=== PATIENT | female | born 1995 | race Caucasian/White ===

== ENCOUNTER → 2018-10-02 | Outpatient (CLI) | payer OTHER | LOC: GMAM 14:25 | PROVIDERS: ATTEND Family Medicine | DX: E10.9 Type 1 diabetes mellitus without complications (principal); R50.9 Fever, unspecified ==

== ENCOUNTER → 2018-10-02 | Outpatient (CLI) | payer OTHER ==
--- NOTE | 2018-10-02 13:08 | CT ---
EXAM DESCRIPTION: Abdomen/Pelvis w/wo Contrast: Computed Tomography. CLINICAL HISTORY: HEMATURIA COMPARISON: None. TECHNIQUE: Spiral-axial scans at 5 x 5 mm intervals through the abdomen and pelvis before and after 100 mL nonionic IV contrast. No oral contrast. Coronal and sagittal 2.0 mm reconstructions. 5 minute 5 mm Delayed helical-axial scans, liver through the pubic symphysis. No adverse reactions. Total Exam DLP 2624.02 mGy - cm. This exam was performed according to our departmental CT dose-optimization program which includes automated exposure control, adjustment of the mA and/or kV according to patient size and/or use of iterative reconstruction technique; to reduce radiation dose to as low as reasonably achievable (ALARA). FINDINGS: Lung bases and pleura: 3 x 3 mm nodule abutting the pleura in the left upper lobe which is calcified with density +282. No further imaging recommended. Otherwise unremarkable. Liver, Stomach, Spleen, Adrenal Glands: 16.7 cm long axis of the right lobe liver and 12.2 cm long axis of the spleen. No focal lesions. Stomach and adrenal glands are unremarkable. Pancreas, Gallbladder, Ducts: Gallbladder visualized. Common bile duct unremarkable. Pancreas is negative. Kidneys and Ureters: Normal size density and enhancement bilaterally. No radiodense stones, hydronephrosis, focal lesions, or perinephric fluid. Normal appearance of the ureters bilaterally although the distal right ureter not well seen on the delayed image. Mesentery: Unremarkable. Aorta: Negative. Small Bowel: Unremarkable. Terminal Ileum/Cecum: Normal caliber. Appendix 5.5 mm wide with no fatty stranding or fascial thickening. Colon: Scattered fecal material with no distention. Mild redundancy of the sigmoid colon and the ascending colon. Pelvic Organs: Uterus appears to be slightly referable flexed fundus deviating to the right. No free fluid. Bilateral ovaries contain follicles. Spine and Bony Pelvis: Minimal subchondral sclerosis bilateral acetabula with normal hip joint spaces. Small bone island posterior medial right iliac bone abutting the inferior SI joint. Abdominal Wall/Back Soft Tissues: 2.0 x 1.4 centimeter reactive lymph node in the left groin region with normal appearance of the surrounding fat and other lymph nodes. Axial series 4, image 91. Diastases at the umbilicus but not containing bowel. IMPRESSION: 1. No abnormalities seen in the bilateral kidneys and ureters without and with IV contrast. Minimal distention of the urinary bladder but not well filled with IV contrast, so mucosa and wall of the urinary bladder not well seen. 2. 2 cm reactive lymph node left groin. No other abnormal appearing lymph nodes with normal density of the surrounding fat. Electronically signed by: Khai Kohli MD 10/02/2018 1:05 PM CDT
== END ==
LOC: CT 12:19
PROVIDERS: ATTEND Family Medicine
DX: R10.31 Right lower quadrant pain (principal)

== ENCOUNTER → 2018-11-12 | Outpatient (CLI) | payer OTHER ==
--- NOTE | 2018-11-13 19:05 | US ---
EXAM DESCRIPTION: Soft Tissue,Extremity: ULTRASOUND. CLINICAL HISTORY: 23 years Female ENLARGED LYMPH NODE LEFT GROIN COMPARISON: CT scan abdomen and pelvis 10/02/2018. TECHNIQUE: Transcutaneous scanning: Mendez-scale and Doppler modes. FINDINGS: Circumscribed hypoechoic mass with an echogenic hilum which is vascular in the left groin measuring 1.3 x 2.1 x 0.8 cm, consistent with a lymph node. In the right groin similar-appearing hypoechoic mass with echogenic center measures 1.6 x 0.5 x 0.5 cm. The echogenic center and hilum is also vascular. No distinct cyst or dominant solid mass. No parenchymal edema or large calcifications. No overlying skin changes. Normal vascularity. IMPRESSION: Bilateral groin lymph nodes which are enlarged but not showing significant reactive changes. Electronically signed by: Khai Kohli MD 11/13/2018 7:03 PM CDT
== END ==
LOC: US 13:00
PROVIDERS: ATTEND Family Medicine
DX: R59.0 Localized enlarged lymph nodes (principal)

== ENCOUNTER 2019-01-20 13:01 | Emergency (ER) | payer OTHER ==
--- NOTE | 2019-01-20 13:20 | ED.PDOC ---
History of Present Illness - General Chief Complaint: Diabetic Complaint Stated Complaint: HIGH BLOOD SUGAR Time Seen by Provider: 01/20/19 13:16 Exam Limitations: no limitations - History of Present Illness Initial Comments: Cori Camargo 23 y/o female stated that her blood sugar been high for the last 3 days and today was about 500 gm /dl as showing on her insulin pump.No nausea /vomiting no polyuria,polydipsia.No fever but stated had been under lots of stress after her daughter was placed under CPS custody. Timing/Duration: other - 3 days Severity: moderate Improving Factors: nothing Worsening Factors: nothing Associated Symptoms: denies symptoms Allergies/Adverse Reactions: Allergies NO KNOWN ALLERGY Allergy (Verified 01/20/19 13:15) Home Medications: Ambulatory Orders Human Insulin Aspart [Novolog] 1 units SUBCU DAILY 01/20/19 Insulin Detemir [Levemir] 30 unit SUBCU BIDAC #1 pen 01/20/19 Sertraline HCl 1 each PO DAILY 01/20/19 Review of Systems - Review of Systems Endocrine: States: other - hyperglycemia All other Systems: Reviewed and Negative, No Change from Baseline Past Medical History (General) - Patient Medical History Hx Diabetes: Yes Surgical History: no surgical history - Vaccination History Hx Influenza Vaccination: Yes - Social History Hx Tobacco Use: No Hx Alcohol Use: No Hx Substance Use: No Hx Substance Use Treatment: No Hx Depression: No - Female History Patient is a Female of Child Bearing Age (10 -59 yrs old): Yes Hx Last Menstrual Period: 01/07/19 Patient : No - Triage Comment ED Triage Comment: DEPO PROVERA CONTROL Family Medical History - Family History Mother Family History: Unknown Physical Exam - Physical Exam General Appearance: Alert, Comfortable, No apparent distress Eye Exam: bilateral normal Ears, Nose, Throat: hearing grossly normal, normal ENT inspection, normal pharynx Neck: non-tender, full range of motion, supple, normal inspection Respiratory: chest non-tender, lungs clear, normal breath sounds, no respiratory distress Cardiovascular/Chest: normal peripheral pulses, regular rate, rhythm, no murmur Peripheral Pulses: radial,right: 2+, radial,left: 2+ Gastrointestinal/Abdominal: non tender, soft Back Exam: no CVA tenderness, no vertebral tenderness Extremity: normal inspection, no pedal edema, no calf tenderness Neurologic: alert, oriented x 3 Skin Exam: normal color, warm/dry Progress - Progress Progress: 01/20/19 13:38 Laboratory Tests 01/20/19 01/20/19 13:20 13:32 POC Glucose > 400 H* Random Glucose Cancelled 01/20/19 13:38 Vital Signs 01/20/19 13:07 Temperature 99.4 F Pulse Rate [ 91 H PULSE OX] Respiratory 20 Rate Blood Pressure 143/85 [Left Arm] O2 Sat by Pulse 99 Oximetry - Results/Orders Results/Orders: Laboratory Tests 01/20/19 01/20/19 01/20/19 13:20 13:20 13:20 WBC 7.7 RBC 5.29 Hgb 12.8 Hct 39.2 MCV 74.1 L MCH 24.2 L MCHC 32.7 L RDW 15.9 H Plt Count 255 MPV 8.5 Absolute Neuts (auto) 4.90 Absolute Lymphs (auto) 2.40 Absolute Monos (auto) 0.30 Absolute Eos (auto) 0.00 Absolute Basos (auto) 0.10 Neutrophils % 63.4 Lymphocytes % 31.5 Monocytes % 3.7 Eosinophils % 0.5 L Basophils % 0.9 Normal RBC Morphology Stain quality accept Sodium 131 L Potassium 4.4 Chloride 97 L Carbon Dioxide 20 L Anion Gap 18.4 H BUN 16 Creatinine 0.96 BUN/Creatinine Ratio 16.7 POC Glucose > 400 H* Random Glucose 495 H* Serum Osmolality 285.8 Calcium 10.1 Total Bilirubin 1.1 H AST 18 ALT 13 Alkaline Phosphatase 80 Serum Total Protein 8.3 H Albumin 4.6 Globulin 3.7 H Albumin/Globulin Ratio 1.2 Serum HCG, Qual Urine Color Urine Appearance Urine pH Ur Specific [place] Urine Protein Urine Glucose (UA) Urine Ketones Urine Blood Urine Nitrite Urine Bilirubin Urine Urobilinogen Ur Leukocyte Esterase Urine RBC Urine WBC Ur Epithelial Cells Urine Bacteria 01/20/19 01/20/19 01/20/19 13:20 13:32 13:40 WBC RBC Hgb Hct MCV MCH MCHC RDW Plt Count MPV Absolute Neuts (auto) Absolute Lymphs (auto) Absolute Monos (auto) Absolute Eos (auto) Absolute Basos (auto) Neutrophils % Lymphocytes % Monocytes % Eosinophils % Basophils % Normal RBC Morphology Sodium Potassium Chloride Carbon Dioxide Anion Gap BUN Creatinine BUN/Creatinine Ratio POC Glucose Random Glucose Cancelled Serum Osmolality Calcium Total Bilirubin AST ALT Alkaline Phosphatase Serum Total Protein Albumin Globulin Albumin/Globulin Ratio Serum HCG, Qual Negative Urine Color Yellow Urine Appearance Clear Urine pH 6.0 Ur Specific [place] 1.015 Urine Protein Negative Urine Glucose (UA) 500 H Urine Ketones 40 H Urine Blood Moderate H Urine Nitrite Negative Urine Bilirubin Negative Urine Urobilinogen 0.2 Ur Leukocyte Esterase Negative Urine RBC 5-10 H Urine WBC 0-1 Ur Epithelial Cells 5-10 Urine Bacteria Rare 01/20/19 15:25 WBC RBC Hgb Hct MCV MCH MCHC RDW Plt Count MPV Absolute Neuts (auto) Absolute Lymphs (auto) Absolute Monos (auto) Absolute Eos (auto) Absolute Basos (auto) Neutrophils % Lymphocytes % Monocytes % Eosinophils % Basophils % Normal RBC Morphology Sodium 133 L Potassium 3.8 Chloride 103 Carbon Dioxide 21 Anion Gap 12.8 BUN 13 Creatinine 0.73 BUN/Creatinine Ratio 17.8 POC Glucose Random Glucose 295 H D Serum Osmolality 277.4 Calcium 9.1 Total Bilirubin AST ALT Alkaline Phosphatase Serum Total Protein Albumin Globulin Albumin/Globulin Ratio Serum HCG, Qual Urine Color Urine Appearance Urine pH Ur Specific [place] Urine Protein Urine Glucose (UA) Urine Ketones Urine Blood Urine Nitrite Urine Bilirubin Urine Urobilinogen Ur Leukocyte Esterase Urine RBC Urine WBC Ur Epithelial Cells Urine Bacteria Discuss test result with patient blood sugar trending down. Departure - Departure Clinical Impression: Hyperglycemia due to type 1 diabetes mellitus Time of Disposition: 16:20 Disposition: Discharge to Home or Self Care Condition: Fair Departure Forms: ED Discharge - Pt. Copy, Patient Portal Self Enrollment Instructions: DI for Diabetes Type 1 -- Adult Referrals: Rob Steven MD [Primary Care Provider] - 1-2 Weeks Prescriptions: Insulin Detemir [Levemir] 30 unit SUBCU BIDAC #1 pen Home Medications: Ambulatory Orders Human Insulin Aspart [Novolog] 1 units SUBCU DAILY 01/20/19 Insulin Detemir [Levemir] 30 unit SUBCU BIDAC #1 pen 01/20/19 Sertraline HCl 1 each PO DAILY 01/20/19 Additional Instructions: Keep appointment with [facility] as scheduled;Return to ER as needed Continue with all home medications
[2019-01-20] MEDS ORDERED: LACTATED RINGERS 1,000 ML IVS ONE (13:24)
[2019-01-20] MEDS ORDERED: INSULIN, REG.(HUMAN) 100 U/ML VIAL SUBCU ONE (13:33)
[2019-01-20] MEDS ORDERED: SODIUM CHLORIDE 0.9% 1000ML 1,000 ML IVS ONE (14:39)
[2019-01-20 15:17] VITALS: TEMP 99.1
[2019-01-20 16:40] VITALS: BP 102/58; O2SAT 97
== END 2019-01-20 16:39 | disposition home or self-care (01) ==
LOC: ER 13:01
DX: E10.65 Type 1 diabetes mellitus with hyperglycemia (principal); Z79.4 Long term (current) use of insulin; Z79.899 Other long term (current) drug therapy
CPT/HCPCS: 36415; 80048; 80053; 81001; 82948; 84703; 85025; J7030; J7120

== ENCOUNTER → 2019-02-26 | Outpatient (CLI) | payer OTHER ==
--- NOTE | 2019-02-26 18:28 | US ---
EXAM DESCRIPTION: Soft Tissue,Extremity: ULTRASOUND. CLINICAL HISTORY: 23 years Female ENLARGED LYMPH NODES, UNSPECIFIED COMPARISON: None Available. TECHNIQUE: Transcutaneous scanning: Mendez-scale and Doppler modes. FINDINGS: Bilateral hypoechoic masses with circumscribed margins and echogenic centers or loretta are seen consistent with lymph nodes. One node measures 1.4 x 0.9 x 0.5 cm in the right inguinal canal, with no color Doppler. Several lymph nodes in the left inguinal canal: 1.6 x 0.8 x 0.6 cm, 1.7 x 1.0 x 0.6 cm (minimal color Doppler) and 1.5 x 0.7 x 0.6. No dominant solid mass or distinct cyst. No large calcifications or parenchymal edema. IMPRESSION: Bilateral lymph nodes in the inguinal canals. The nodes do not appear reactive. Minimally vascular. No dominant solid masses or cysts or parenchymal edema. Electronically signed by: Khai Kohli MD 02/26/2019 6:26 PM CDT
== END ==
LOC: US 10:00
PROVIDERS: ATTEND Family Medicine
DX: R59.9 Enlarged lymph nodes, unspecified (principal)

== ENCOUNTER 2019-10-11 13:50 | Emergency (ER) | payer OTHER ==
[2019-10-11] MEDS ORDERED: SODIUM CHLORIDE 0.9% (FLUSH) 10 ML SYG IV PRN (14:20)
--- NOTE | 2019-10-11 16:02 | CT ---
EXAM DESCRIPTION: Abdomen/Pelvis w/Contrast CLINICAL HISTORY:24 years Female, abdominal pain Comparison: September 2018 TECHNIQUE: Contiguous axial CT images of the abdomen and pelvis were obtained. Sagittal and coronal reformats were reviewed. This exam was performed according to our departmental dose-optimization program, which includes automated exposure control, adjustment of the mA and/or kV according to patient size and/or use of iterative reconstruction technique. FINDINGS: Lung bases: Clear. Liver:Unremarkable. No focal liver lesion. Gallbladder:Unremarkable. No gallstones. No gallbladder wall thickening or pericholecystic fluid. Spleen:Unremarkable Pancreas: Pancreas is unremarkable. Adrenal glands:Within normal limits. Kidneys/ureters:Within normal limits Stomach/small bowel/colon: Stomach is unremarkable. Small bowel is unremarkable. Colon is unremarkable. Appendix: No evidence of appendicitis. Peritoneum: No free fluid. Vascular structures: within normal limits Lymph nodes: Numerous and mildly prominent mesenteric lymph nodes scattered throughout the abdomen are stable compared to the previous exam. Bladder:Unremarkable. Pelvic organs: No acute abnormality Bones: No acute osseous abnormality. Soft tissues: Unremarkable.. IMPRESSION: No acute intra-abdominal abnormality. Electronically signed by: Martín Colon DO 10/11/2019 4:00 PM CDT
[2019-10-11] MEDS ORDERED: DICYCLOMINE HCL INJ 20 MG/2 ML AMP IM ONE (16:37)
--- NOTE | 2019-10-11 16:52 | ED.PDOC ---
History of Present Illness - General Chief Complaint: GI Problem Stated Complaint: Abdominal pain, diarrhea, constipation Time Seen by Provider: 10/11/19 14:10 - History of Present Illness Initial Comments: c/o central abdominal pain since few days went to clinic was told that she has UTI and started on UTI meds , then again went to clinic as pt was getting worse , was told that she has constipation , her constipation has gone but still having the pain Review of Systems - Review of Systems Constitutional: States: no symptoms reported EENTM: States: no symptoms reported Respiratory: States: no symptoms reported Cardiology: States: no symptoms reported Gastrointestinal/Abdominal: States: see HPI Genitourinary: States: no symptoms reported Musculoskeletal: States: no symptoms reported Skin: States: no symptoms reported Neurological: States: no symptoms reported Endocrine: States: no symptoms reported Past Medical History (General) - Patient Medical History Hx Stroke: No Hx of COPD: No Hx Cardiac Disorders: No Hx Hypertension: No Hx Diabetes: Yes Hx Cancer: No Surgical History: no surgical history - Vaccination History Hx Influenza Vaccination: Yes - Social History Hx Tobacco Use: No Hx Alcohol Use: Yes Hx Substance Use: No Hx Substance Use Treatment: No Hx Depression: No - Female History Patient is a Female of Child Bearing Age (10 -59 yrs old): Yes Hx Last Menstrual Period: 01/07/19 Patient : No - Denies Family Medical History - Family History Maternal Grandparents Hx Family Diabetes: Yes Mother Family History: Unknown Living Status: Still Living Physical Exam - Physical Exam General Appearance: Alert, Comfortable Eyes, Ears, Nose, Throat Exam: PERRL/EOMI, normal ENT inspection Neck: non-tender, full range of motion, supple, normal inspection Respiratory: chest non-tender, lungs clear, normal breath sounds, no respiratory distress, no accessory muscle use Cardiovascular/Chest: regular rate, rhythm, no edema, no gallop, no JVD, no murm ur Gastrointestinal/Abdominal: soft, tenderness - central abdominal tenderness Progress - Results/Orders Results/Orders: Laboratory Results WBC 9.3 K/mm3 (4.8-10.8) 10/11/19 14:43 RBC 5.13 M/mm3 (4.20-5.40) 10/11/19 14:43 Hgb 13.3 gm/dL (12.0-16.0) 10/11/19 14:43 Hct 39.9 % (36.0-47.0) 10/11/19 14:43 MCV 77.8 fl (81.0-99.0) L 10/11/19 14:43 MCH 25.9 pg (27.0-31.0) L 10/11/19 14:43 MCHC 33.3 g/dL (33.0-37.0) 10/11/19 14:43 RDW 13.4 % (11.5-14.5) 10/11/19 14:43 Plt Count 303 K/mm3 (130-400) 10/11/19 14:43 MPV 7.5 fl (7.40-10.4) 10/11/19 14:43 Absolute Neuts (auto) 5.40 K/uL (1.8-6.8) 10/11/19 14:43 Absolute Lymphs (auto) 3.30 K/uL (1.0-3.4) 10/11/19 14:43 Absolute Monos (auto) 0.40 K/uL (0.2-0.8) 10/11/19 14:43 Absolute Eos (auto) 0.10 K/uL (0.0-0.4) 10/11/19 14:43 Absolute Basos (auto) 0.10 K/uL (0.0-0.1) 10/11/19 14:43 Neutrophils % 58.3 % (42.0-78.0) 10/11/19 14:43 Lymphocytes % 35.0 % (20.0-50.0) 10/11/19 14:43 Monocytes % 4.6 % (2.0-9.0) 10/11/19 14:43 Eosinophils % 1.5 % (1.0-5.0) 10/11/19 14:43 Basophils % 0.6 % (0.0-2.0) 10/11/19 14:43 Sodium 136 mmol/L (135-145) 10/11/19 14:43 Potassium 3.8 mmol/L (3.6-5.0) 10/11/19 14:43 Chloride 101 mmol/L (101-111) 10/11/19 14:43 Carbon Dioxide 24 mmol/L (21-31) 10/11/19 14:43 Anion Gap 14.8 (12-18) 10/11/19 14:43 BUN 12 mg/dL (7-18) 10/11/19 14:43 Creatinine 0.70 mg/dL (0.6-1.3) 10/11/19 14:43 BUN/Creatinine Ratio 17.1 (10-20) 10/11/19 14:43 POC Glucose 59 mg/dL (70-105) L 10/11/19 14:43 Random Glucose 75 mg/dL (70-105) 10/11/19 14:43 Serum Osmolality 270.4 mOsm/L (275-295) L 10/11/19 14:43 Calcium 9.8 mg/dL (8.4-10.2) 10/11/19 14:43 Total Bilirubin 0.5 mg/dL (0.2-1.0) 10/11/19 14:43 Direct Bilirubin 0.1 mg/dL (0-0.2) 10/11/19 14:43 Indirect Bilirubin 0.4 mg/dL (0.2-0.8) 10/11/19 14:43 AST 14 IU/L (10-42) 10/11/19 14:43 ALT 12 IU/L (10-60) 10/11/19 14:43 Alkaline Phosphatase 75 IU/L (42-121) 10/11/19 14:43 Serum Total Protein 7.7 gm/dL (6.4-8.2) 10/11/19 14:43 Albumin 4.3 g/dl (3.2-5.5) 10/11/19 14:43 Lipase 31 U/L (22-51) 10/11/19 14:43 Serum HCG, Qual Negative (NEGATIVE) 10/11/19 14:43 Urine Color Yellow (Yellow) 10/11/19 15:00 Urine Appearance Clear (Clear) 10/11/19 15:00 Urine pH 6.0 (4.5-7.8) 10/11/19 15:00 Ur Specific [place] <= 1.005 (1.005-1.030) 10/11/19 15:00 Urine Protein Negative mg/dL 10/11/19 15:00 Urine Glucose (UA) Negative mg/dL (Negative) 10/11/19 15:00 Urine Ketones Negative mg/dL (NEGATIVE) 10/11/19 15:00 Urine Blood Trace-intact (Negative) H 10/11/19 15:00 Urine Nitrite Negative 10/11/19 15:00 Urine Bilirubin Negative (NEGATIVE) 10/11/19 15:00 Urine Urobilinogen 0.2 mg/dL (0.2-1.0) 10/11/19 15:00 Ur Leukocyte Esterase Trace (Negative) H 10/11/19 15:00 Urine RBC 0-1 /hpf 10/11/19 15:00 Urine WBC 0 /hpf 10/11/19 15:00 Ur Epithelial Cells 5-10 /hpf 10/11/19 15:00 Urine Bacteria Rare 10/11/19 15:00 - EKG/XRAY/CT CT Ordered: Yes Departure - Departure Clinical Impression: Abdominal pain Time of Disposition: 17:29 Disposition: Discharge to Home or Self Care Condition: Good Departure Forms: ED Discharge - Pt. Copy, Patient Portal Self Enrollment Diet: resume usual diet Activity: increase activity as tolerated, walking as tolerated Referrals: Rob Steven MD [Primary Care Provider] - 1-2 Weeks Prescriptions: Dicyclomine HCl [Bentyl] 20 mg PO QID #12 tab Home Medications: Ambulatory Orders Human Insulin Aspart [Novolog] 1 units SUBCU DAILY 01/20/19 Insulin Detemir [Levemir] 30 unit SUBCU BIDAC #1 pen 01/20/19 Buspirone HCl [Buspirone Hydrochloride] 15 mg PO DAILY 10/11/19 Dicyclomine HCl [Bentyl] 20 mg PO QID #12 tab 10/11/19 Gabapentin [Neurontin] 300 mg PO PRN PRN 10/11/19 Additional Instructions: Return to the ER if symptoms gets worse
[2019-10-11 17:40] VITALS: BP 113/78; TEMP 98; O2SAT 98
== END 2019-10-11 17:40 | disposition home or self-care (01) ==
LOC: ER 13:50
DX: R10.9 Unspecified abdominal pain (principal); E11.9 Type 2 diabetes mellitus without complications; Z87.440 Personal history of urinary (tract) infections; Z79.4 Long term (current) use of insulin; Z79.899 Other long term (current) drug therapy
CPT/HCPCS: 36415; 74177; 80048; 80076; 81001; 82948; 83690; 84703; 85025; J0500

== ENCOUNTER → 2019-10-13 | Outpatient (CLI) | payer OTHER | LOC: GMAM 11:40 | PROVIDERS: ATTEND Family Medicine | DX: R10.84 Generalized abdominal pain (principal) ==

== ENCOUNTER 2020-01-03 06:30 | Emergency (ER) | payer OTHER ==
[2020-01-03] MEDS ORDERED: CYCLOBENZAPRINE HCL 10 MG TAB PO ONE (06:50)
[2020-01-03] MEDS ORDERED: NAPROXEN SODIUM 220 MG TAB PO ONE ×2 (06:50→07:00)
--- NOTE | 2020-01-03 06:52 | ED.PDOC ---
History of Present Illness - General Time Seen by Provider: 01/03/20 06:49 Source: patient Exam Limitations: no limitations - History of Present Illness Initial Comments: The patient is a 24-year-old female presented emergency room secondary to left shoulder pain. 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 The patient does have chronic issues with that shoulder as she is broken the clavicle wants and reinjured it significantly after that. The patient has pain with almost any movement and pain diffusely over almost the entire shoulder. He has obvious arthritic changes at the proximal end of the left clavicle. She also has AC joint inflammation. She has diffuse tenderness to palpation over the shoulder as well as the supraspinatus muscle that is obviously an palpable spasm as well as the trapezius muscle but is also in obvious spasm. She does indicate some pain with internal rotation as well as with abduction. She is appears to be neurovascularly intact. Timing/Duration: other - 10 hours Severity: moderate Improving Factors: immobilization Worsening Factors: movement Associated Symptoms: denies symptoms Allergies/Adverse Reactions: Allergies NO KNOWN ALLERGY Allergy (Verified 10/11/19 14:18) Home Medications: Ambulatory Orders Human Insulin Aspart [Novolog] 1 units SUBCU DAILY 01/20/19 Insulin Detemir [Levemir] 30 unit SUBCU BIDAC #1 pen 01/20/19 Buspirone HCl [Buspirone Hydrochloride] 15 mg PO DAILY 10/11/19 Dicyclomine HCl [Bentyl] 20 mg PO QID #12 tab 10/11/19 Gabapentin [Neurontin] 300 mg PO PRN PRN 10/11/19 Cyclobenzaprine HCl [Flexeril] 10 mg PO TID PRN #20 tab 01/03/20 Review of Systems - Review of Systems Constitutional: States: no symptoms reported EENTM: States: no symptoms reported Respiratory: States: no symptoms reported Cardiology: States: no symptoms reported Gastrointestinal/Abdominal: States: no symptoms reported Genitourinary: States: no symptoms reported Musculoskeletal: States: see HPI Skin: States: no symptoms reported Neurological: States: no symptoms reported Endocrine: States: no symptoms reported All other Systems: No Change from Baseline Past Medical History (General) - Patient Medical History Hx Stroke: No Hx of COPD: No Hx Cardiac Disorders: No Hx Hypertension: No Hx Diabetes: Yes Hx Cancer: No - Vaccination History Hx Influenza Vaccination: Yes - Social History Hx Tobacco Use: No Hx Alcohol Use: Yes Hx Substance Use: No Hx Substance Use Treatment: No Hx Depression: No - Female History Hx Last Menstrual Period: 01/07/19 Patient : No - Denies Family Medical History - Family History Mother Family History: Unknown Living Status: Still Living Maternal Grandparents Hx Family Diabetes: Yes Physical Exam - Physical Exam General Appearance: Alert, Anxious, No apparent distress Eye Exam: bilateral normal Ears, Nose, Throat: hearing grossly normal, normal pharynx Neck: other - The patient is obvious spasm over the left side trapezius extending from the base of the scalp down to approximately T 30 and out towards the point of the shoulder. No spinous process tenderness or step-off. No evidence of acute trauma. Respiratory: lungs clear, normal breath sounds, no respiratory distress, no accessory muscle use Cardiovascular/Chest: normal peripheral pulses, regular rate, rhythm, no edema Peripheral Pulses: radial,right: 2+, radial,left: 2+ Gastrointestinal/Abdominal: non tender, soft Rectal Exam: deferred Back Exam: normal inspection, no CVA tenderness, no vertebral tenderness Extremity: no pedal edema, no calf tenderness, other - See history of present illness for left upper extremity shoulder exam. The patient moves the elbow and wrist and hand within normal limits. Neurologic: rn support services II-XII nml as tested, alert, normal mood/affect, oriented x 3 Skin Exam: normal color Comments: Vital Signs - 24 hr 01/03/20 06:40 Temperature 97.2 F L Pulse Rate [ 85 Right Arm] Respiratory 18 Rate Blood Pressure 152/105 [Right Arm] O2 Sat by Pulse 99 Oximetry Progress - Progress Progress: 01/03/20 06:53 The patient is a 24-year-old female presented emergency room secondary to a left shoulder strain including spasms in the rotator cuff muscles and trapezius muscle on that side. Additionally she does have inflammation in points of arthritis in the both ends of the clavicle. The patient needs to take Aleve 400 mg twice daily for the next week with food. Additionally for the muscle spasm she is going to be written for Flexeril 10 mg p.o. 3 times daily as needed muscle spasm. She needs to keep her self well-hydrated. She needs to do topical heat over the area. Additionally and most importantly she needs to be range of motion exercises and stretching for that shoulder. She needs to avoid sleeping on her left side as well. ER warnings are given for any worsening. She does need to be careful with the muscle relaxer as it can make her drowsy. matt melendrez [phone] Departure - Departure Clinical Impression: Acromioclavicular arthrosis Strain of left shoulder Qualifiers: Encounter type: initial encounter Qualified Code(s): S46.912A - Strain of u nspecified muscle, fascia and tendon at shoulder and upper arm level, left arm, initial encounter Disposition: Discharge to Home or Self Care Condition: Fair Instructions: Overuse Injuries (DC) Diet: regular diet Activity: increase activity as tolerated Referrals: Rob Melendrez MD [Primary Care Provider] - 1-2 Weeks Prescriptions: Cyclobenzaprine HCl [Flexeril] 10 mg PO TID PRN #20 tab PRN Reason: Muscle Spasms Home Medications: Ambulatory Orders Human Insulin Aspart [Novolog] 1 units SUBCU DAILY 01/20/19 Insulin Detemir [Levemir] 30 unit SUBCU BIDAC #1 pen 01/20/19 Buspirone HCl [Buspirone Hydrochloride] 15 mg PO DAILY 10/11/19 Dicyclomine HCl [Bentyl] 20 mg PO QID #12 tab 10/11/19 Gabapentin [Neurontin] 300 mg PO PRN PRN 10/11/19 Cyclobenzaprine HCl [Flexeril] 10 mg PO TID PRN #20 tab 01/03/20 Additional Instructions: The patient is a 24-year-old female presented emergency room secondary to a left shoulder strain including spasms in the rotator cuff muscles and trapezius muscle on that side. Additionally she does have inflammation in points of arthritis in the both ends of the clavicle. The patient needs to take Aleve 400 mg twice daily for the next week with food. Additionally for the muscle spasm she is going to be written for Flexeril 10 mg p.o. 3 times daily as needed muscle spasm. She needs to keep her self well-hydrated. She needs to do topical heat over the area. Additionally and most importantly she needs to be range of motion exercises and stretching for that shoulder. She needs to avoid sleeping on her left side as well. ER warnings are given for any worsening. She does need to be careful with the muscle relaxer as it can make her drowsy. Addendum entered and electronically signed by Niall Vickers MD 01/03/20 07:21: Departure - Departure Clinical Impression: Acromioclavicular arthrosis Strain of left shoulder Qualifiers: Encounter type: initial encounter Qualified Code(s): S46.912A - Strain of unspecified muscle, fascia and tendon at shoulder and upper arm level, left arm, initial encounter Disposition: Discharge to Home or Self Care Condition: Fair Instructions: Overuse Injuries (DC) Referrals: Rob Melendrez MD [Primary Care Provider] - 1-2 Weeks Prescriptions: Cyclobenzaprine HCl [Flexeril] 5 mg PO Q8HR PRN #10 tab PRN Reason: Muscle Spasms Home Medications: Ambulatory Orders Human Insulin Aspart [Novolog] 1 units SUBCU DAILY 01/20/19 Insulin Detemir [Levemir] 30 unit SUBCU BIDAC #1 pen 01/20/19 Gabapentin [Neurontin] 300 mg PO PRN PRN 10/11/19 Cyclobenzaprine HCl [Flexeril] 5 mg PO Q8HR PRN #10 tab 01/03/20 Additional Instructions: The patient is a 24-year-old female presented emergency room secondary to a left shoulder strain including spasms in the rotator cuff muscles and trapezius muscle on that side. Additionally she does have inflammation in points of arthritis in the both ends of the clavicle. The patient needs to take Aleve 400 mg twice daily for the next week with food. Additionally for the muscle spasm she is going to be written for Flexeril 10 mg p.o. 3 times daily as needed muscle spasm. She needs to keep her self well-hydrated. She needs to do topical heat over the area. Additionally and most importantly she needs to be range of motion exercises and stretching for that shoulder. She needs to avoid sleeping on her left side as well. ER warnings are given for any worsening. She does need to be careful with the muscle relaxer as it can make her drowsy. ED Addendum - ED Addendum Addendum: Patient being discharge by Dr. Melendrez, who had just previously left. Patient complained of left shoulder pain, able to range shoulder. See previous documentation by Dr. Melendrez. Requesting prescription for muscle relaxer. Recent negative test by clinical editor reported. Prescribed flexeril per reported previous plan from Dr. Melendrez.
[2020-01-03 07:30] VITALS: BP 101/81; TEMP 98.1; O2SAT 98
== END 2020-01-03 07:28 | disposition home or self-care (01) ==
LOC: ER 06:30
DX: S46.912A Strain of unspecified muscle, fascia and tendon at shoulder and upper arm level, left arm, initial encounter (principal); M19.012 Primary osteoarthritis, left shoulder; E11.9 Type 2 diabetes mellitus without complications; Z79.4 Long term (current) use of insulin; X58.XXXA Exposure to other specified factors, initial encounter; Y92.9 Unspecified place or not applicable

== ENCOUNTER → 2020-01-11 | Outpatient (CLI) | payer OTHER ==
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
== END ==
LOC: MRI 14:26
PROVIDERS: ATTEND Family Medicine
DX: M54.12 Radiculopathy, cervical region (principal); M50.321 Other cervical disc degeneration at C4-C5 level; M50.322 Other cervical disc degeneration at C5-C6 level; M50.323 Other cervical disc degeneration at C6-C7 level; R59.9 Enlarged lymph nodes, unspecified

== ENCOUNTER 2020-02-10 21:21 | Emergency (ER) | payer OTHER ==
[2020-02-10] MEDS ORDERED: SODIUM CHLORIDE 0.9% (FLUSH) 10 ML SYG IV PRN (21:29)
[2020-02-10] MEDS ORDERED: SODIUM CHLORIDE 0.9% 1000ML 1,000 ML IVS PRN (21:29)
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
[2020-02-10 22:59] VITALS: O2SAT 100
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
[2020-02-10] MEDS ORDERED: IBUPROFEN 200 MG TAB PO ONE (23:25)
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
[2020-02-10 23:31] VITALS: BP 117/60; TEMP 96.9
== END 2020-02-10 23:30 | disposition home or self-care (01) ==
LOC: ER 21:21
DX: S13.9XXA Sprain of joints and ligaments of unspecified parts of neck, initial encounter (principal); S33.5XXA Sprain of ligaments of lumbar spine, initial encounter; R00.0 Tachycardia, unspecified; E10.9 Type 1 diabetes mellitus without complications; V49.88XA Car occupant (driver) (passenger) injured in other specified transport accidents, initial encounter; Y92.410 Unspecified street and highway as the place of occurrence of the external cause; Z79.4 Long term (current) use of insulin; Z79.899 Other long term (current) drug therapy; Z88.8 Allergy status to other drugs, medicaments and biological substances
CPT/HCPCS: 36415; 70450; 71260; 72070; 72100; 72125; 72170; 74177; 80053; 80307; 80320; 81001; 82150; 84703; 85025; 85610; 85730; 87086; A4216; J7030